=== PATIENT | female | born 1980 | race African-American/Black ===

== ENCOUNTER 2017-11-12 16:30 | Emergency (ER) | payer SELFPAY ==
[2017-11-12] MEDS ORDERED: Ondansetron ODT 4 MG TAB ONE (17:22)
[2017-11-12] MEDS ORDERED: Acetaminophen 500 MG TAB ONE (17:22)
--- NOTE | 2017-11-12 18:57 | RAD ---
CHEST ONE VIEW: History: Sore throat and fever. FINDINGS: Heart size and mediastinum are within normal limits. There is suggestion of some minimally increased density in the right upper lobe, possibly an early infiltrate. Also suggestion of some minimal densit y in the right middle lobe. IMPRESSION: Very minimal increased density in the right upper lobe along the minor fissure and suggestion of perh aps some minimal right middle lobe changes. This could represent some patchy areas of infiltrate. POS: [facility]
== END 2017-11-12 18:20 | disposition home or self-care (01) ==
LOC: ERS 16:30
DX: J18.9 Pneumonia, unspecified organism (principal); I10 Essential (primary) hypertension; J45.909 Unspecified asthma, uncomplicated
CPT/HCPCS: 71046; 87081; 87430; 87804; Q0162